=== PATIENT | female | born 1945 | race Caucasian/White ===

== ENCOUNTER 2017-07-14 09:41 | Day surgery (SDC) | payer MEDICARE ==
[2017-07-14 14:06] VITALS: BP 192/66
== END 2017-07-14 12:50 | disposition home or self-care (01) ==
LOC: SDC 09:41
PROVIDERS: Ophthalmology
PROC: 08RJ3JZ Replacement of Right Lens with Synthetic Substitute, Percutaneous Approach (ICD-10-PCS; principal; 2017-07-14 13:00)
DX: H26.9 Unspecified cataract (principal)
CPT/HCPCS: V2632